=== PATIENT | male | born 1990 | race Caucasian/White ===

== ENCOUNTER 2021-01-13 17:21 | Emergency (ER) | payer OTHER ==
[~2021-01-13] VITALS: Ht 177.8 cm; Wt 72.6 kg
[2021-01-13 17:42] LABS: URINE BILIRUBIN NEGATIVE (Negative); URINE BLOOD 3+ (Negative); URINE CLARITY CLEAR; URINE COLOR YELLOW; URINE GLUCOSE-RANDOM* NEGATIVE (Negative); URINE KETONES NEGATIVE (Negative); URINE LEUKOCYTES-REFLEX NEGATIVE (Negative); URINE NITRITE-REFLEX NEGATIVE (Negative); URINE PROTEIN (DIPSTICK) NEGATIVE (Negative); URINE SPECIFIC GRAVITY 1.025 (1.005-1.035); URINE UROBILINOGEN 0.2 E.U./dl (0.2-1.0)
[2021-01-13 17:50] LABS: BACTERIA-REFLEX None Seen /HPF (None Seen); CASTS None Seen /LPF (None Seen); SQUAMOUS None Seen /LPF (0-3); URINE RBC 3-10 Few /HPF (0-2); URINE WBC-REFLEX None Seen /HPF (0-5)
[2021-01-13 17:51] LABS: CRYSTALS None Seen /LPF (None Seen)
[2021-01-13 18:45] LABS: HEMATOCRIT 42.1 % (42.0-52.0); HEMOGLOBIN 14.3 gm/dL (14.0-18.0); MCH 31.9 pg (26.0-34.0); MCHC 33.9 g/dL (28.0-37.0); RBC 4.48 mil/uL (4.50-6.00); RDW 12.7 % (10.5-14.5); WBC 17.1 thou/uL (4.0-11.0)
[2021-01-13 18:54] LABS: CREATININE 1.3 mg/dL (0.7-1.3); POTASSIUM 3.6 mmol/L (3.5-5.1)
[2021-01-13] MEDS ORDERED: ZOFRAN ODT4 MG PO (20:31)
[2021-01-13] MEDS ORDERED: NORCO5 PO (20:31)
[2021-01-13] MEDS ORDERED: TORADOL 10 MG T10 MG PO (20:31)
[2021-01-13] MEDS ORDERED: FLOMAX0.4 MG PO (20:31)
[2021-01-13 21:00] VITALS: BP 112/57
== END 2021-01-13 21:18 | disposition home or self-care (01) ==
LOC: ER 17:21
PROVIDERS: Nurse Practitioner Family
DX: N20.1 Calculus of ureter (principal)